=== PATIENT | female | born 1955 | race Caucasian/White ===

== ENCOUNTER 2022-02-15 21:19 | Emergency (ER) | payer MEDICARE, BC ==
[2022-02-15] MEDS ORDERED: Diphtheria,Pertussis(Acell),Tetanus Vaccine 0.5 ML Syringe IM ONE (23:07)
== END 2022-02-16 00:26 | disposition home or self-care (01) ==
LOC: JD.ED 21:19
DX: S01.21XA Laceration without foreign body of nose, initial encounter (principal); K21.9 Gastro-esophageal reflux disease without esophagitis; Z23 Encounter for immunization; Z79.899 Other long term (current) drug therapy; W01.198A Fall on same level from slipping, tripping and stumbling with subsequent striking against other object, initial encounter
CPT/HCPCS: 12011; 90471; 90715; 99283; 99283-25